=== PATIENT | female | born 1930 | race Caucasian/White ===

== ENCOUNTER 2016-09-29 15:19 | Emergency (ER) | payer MEDICARE, BC ==
--- NOTE | 2016-09-29 15:33 | Emergency Department Record ---
History of Present Illness - General Chief Complaint: Animal Bite Stated Complaint: CAT BITE ON HAND Time Seen by Provider: 09/29/16 15:32 Source: Patient Mode of Arrival: Ambulatory Limitations: No limitations - History of Present Illness Initial Comments: The patient sustained a scratch to the back of the L hand 6 hours ago by her cat. She is not sure of the cat's Rabies status. Her TD was just updated by Dr. Connelly. Now she is here for possible suturing or steri-stripping. Complaint: Animal-related injury Onset/Timin -: Hour(s) Animal: Cat Description: Household pet Mechanism: Scratch Severity scale (1-10): 4 Context: Other Associated Symptoms: Bleeding, Erythema - Related Data Home Medications Medication Instructions Recorded Confirmed Last Taken Hydrochlorothiazide [Hctz 25Mg] 25 mg PO DAILY 09/29/16 09/29/16 09/29/16 Levothyroxine Sodium [Synthroid] 100 mcg PO DAILY 09/29/16 09/29/16 09/29/16 Losartan Potassium [Cozaar] 100 mg PO DAILY 09/29/16 09/29/16 09/29/16 Simvastatin [Zocor] 40 mg PO DAILY 09/29/16 09/29/16 09/29/16 Previous Rx's Medication Instructions Recorded Amoxicillin/Potassium Clav 1 each PO BID #14 tablet 09/29/16 [Augmentin 875Mg/125Mg] Allergies Allergy/AdvReac Type Severity Reaction Status Date / Time No Known Drug Intolerances Allergy Unknown none Verified 09/29/16 15:32 Travel Screening - Travel/Exposure Within Last 30 Days Have you traveled within the last 30 days?: No - Travel/Exposure Within Last Year Have you traveled outside the [place] in the last year?: No - Additonal Travel Details Have you been exposed to anyone with a communicable illness?: No - Travel Symptoms Symptom Screening: None Review of Systems Constitutional: Denies: Chills, Fever Past Medical History - SOCIAL HISTORY Smoking Status: Never smoker Alcohol Use: None Drug Use: None - RESPIRATORY Hx Respiratory Disorders: No - CARDIOVASCULAR Hx Cardio Disorders: Yes Hx Hypertension: Yes Comment:: cholesterol - NEURO Hx Neuro Disorders: No - GI Hx GI Disorders: No - Hx Genitourinary Disorders: No - ENDOCRINE Hx Endocrine Disorders: Yes Hx Diabetes: No Hx Thyroid Disease: Yes - MUSCULOSKELETAL Hx Musculoskeletal Disorders: No - PSYCH Hx Psych Problems: No - HEMATOLOGY/ONCOLOGY Hx Hematology/Oncology Disorders: No Family Medical History Any Significant Family History?: No Physical Exam - General General Appearance: Alert, Oriented x3, Cooperative, No acute distress - Head Head exam: Atraumatic, Normocephalic, Normal inspection - Eye Eye exam: Normal appearance, PERRL - Extremities Extremities exam: Full ROM. negative: Normal inspection (There is a 5 cm superficial laceration to the dorsal L hand. The distal hand is NVI with normal pulses.) Course Vital Signs 09/29/16 15:23 Temperature 97.7 F Pulse Rate 59 L Respiratory 20 Rate Blood Pressure 191/74 Pulse Ox 96 - Reevaluation(s) Reevaluation #1: The L hand wound was cleansed with betadine and sterile saline. The wound was very clean after the cleansing. The laceration was very superficial and due to the nature of the wound and the fact it was over 6 hours from the initial injury it was loosely steri stripped. 09/29/16 15:46 Reevaluation #2: I did discuss the cat and rabies issue with the patient. She is to contact animal control to quarantine her cat to be sure she does not contract rabies. 09/29/16 16:34 Disposition Disposition: Discharge Clinical Impression: Open wound, hand Qualifiers: Encounter type: initial encounter Open wound type: laceration Foreign body presence: without foreign body Laterality: left Qualified Code(s): S61.412A - Laceration without foreign body of left hand, initial encounter Disposition: Home, Self-Care Condition: (1) Good Instructions: Animal Bite (ED) Additional Instructions: Please take the Augmentin as directed. Please keep the hand clean and dry and return to the ER in 2 days for a wound recheck. Take Tylenol for pain. Prescriptions: Amoxicillin/Potassium Clav [Augmentin 875Mg/125Mg] 1 each PO BID #14 tablet Forms: Patient Portal Access Time of Disposition: 15:50
[2016-09-29] MEDS ORDERED: AMOXICILLIN/POTASSIUM CLAV 875MG/125MG TABLET PO ONE (15:42)
== END 2016-09-29 16:31 | disposition home or self-care (01) ==
LOC: ER 15:19
DX: S61.412A Laceration without foreign body of left hand, initial encounter (principal); W55.01XA Bitten by cat, initial encounter; Y92.009 Unspecified place in unspecified non-institutional (private) residence as the place of occurrence of the external cause
CPT/HCPCS: 99283

== ENCOUNTER 2016-10-01 08:48 | Emergency (ER) | payer MEDICARE, BC ==
--- NOTE | 2016-10-01 09:07 | Emergency Department Record ---
History of Present Illness - General Chief Complaint: Wound, check Stated Complaint: RECHECK Time Seen by Provider: 10/01/16 08:58 Source: Patient Mode of arrival: Ambulatory Limitations: No limitations - History of Present Illness Initial Comments: pt here for recheck of cat scratch 2 days ago. pt states she is better. she is taking augmentin Complaint: Wound re-check Onset/Timin -: Days(s) Initial Visit For: Other Returns Today for: Wound recheck Symptoms Since Prior Visit: No new symptoms, Improved Associated Symptoms: None Treatments Prior to Arrival: Given antibiotics on initial visit - Related Data Home Medications Medication Instructions Recorded Confirmed Last Taken Hydrochlorothiazide [Hctz 25Mg] 25 mg PO DAILY 09/29/16 10/01/16 09/29/16 Levothyroxine Sodium [Synthroid] 100 mcg PO DAILY 09/29/16 10/01/16 09/29/16 Losartan Potassium [Cozaar] 100 mg PO DAILY 09/29/16 10/01/16 09/29/16 Simvastatin [Zocor] 40 mg PO DAILY 09/29/16 10/01/16 09/29/16 Previous Rx's Medication Instructions Recorded Amoxicillin/Potassium Clav 1 each PO BID #14 tablet 09/29/16 [Augmentin 875Mg/125Mg] Allergies Allergy/AdvReac Type Severity Reaction Status Date / Time No Known Drug Intolerances Allergy Unknown none Verified 09/29/16 15:32 Travel Screening - Travel/Exposure Within Last 30 Days Have you traveled within the last 30 days?: No Review of Systems Reviewed: No additional complaints except as noted below Constitutional: Reports: As per HPI. Denies: Chills, Fever, Malaise, Night sweats, Weakness, Weight change Eyes: Reports: As per HPI. Denies: Eye discharge, Eye pain, Photophobia, Vision change ENT: Reports: As per HPI. Denies: Congestion, Dental pain, Ear pain, Epistaxis , Hearing loss, Throat pain Respiratory: Reports: As per HPI. Denies: Cough, Dyspnea, Hemoptysis, Stridor, Wheezes Cardiovascular: Reports: As per HPI. Denies: Arrhythmia, Chest pain, Dyspnea on exertion, Edema, Murmurs, Orthopnea, Palpitations, Paroxysmal nocturnal dyspnea, Rheumatic Fever, Syncope Endocrine: Reports: As per HPI. Denies: Fatigue, Heat or cold intolerance, Polydipsia, Polyuria Gastrointestinal: Reports: As per HPI. Denies: Abdominal pain, Constipation, Diarrhea, Hematemesis, Hematochezia, Melena, Nausea, Vomiting Genitourinary: Reports: As per HPI. Denies: Abnormal menses, Discharge, Dyspareunia, Dysuria, Frequency, Hematuria, Incontinence, Retention, Urgency Musculoskeletal: Reports: As per HPI. Denies: Arthralgia, Back pain, Gout, Joint swelling, Myalgia, Neck pain Skin: Reports: As per HPI. Denies: Bruising, Change in color, Change in hair/ nails, Lesions, Pruritus, Rash Neurological: Reports: As per HPI. Denies: Abnormal gait, Confusion, Headache, Numbness, Paresthesias, Seizure, Tingling, Tremors, Vertigo, Weakness Psychiatric: Reports: As per HPI. Denies: Anxiety, Auditory hallucinations, Depression, Homicidal thoughts, Suicidal thoughts, Visual hallucinations Hematological/Lymphatic: Reports: As per HPI. Denies: Anemia, Blood Clots, Easy bleeding, Easy bruising, Swollen glands Past Medical History - SOCIAL HISTORY Smoking Status: Never smoker - RESPIRATORY Hx Respiratory Disorders: No - CARDIOVASCULAR Hx Cardio Disorders: Yes Hx Hypertension: Yes Comment:: cholesterol - NEURO Hx Neuro Disorders: No - GI Hx GI Disorders: No - Hx Genitourinary Disorders: No - ENDOCRINE Hx Endocrine Disorders: Yes Hx Diabetes: No Hx Thyroid Disease: Yes - MUSCULOSKELETAL Hx Musculoskeletal Disorders: No - PSYCH Hx Psych Problems: No - HEMATOLOGY/ONCOLOGY Hx Hematology/Oncology Disorders: No Family Medical History Any Significant Family History?: No Physical Exam - General General Appearance: Alert, Oriented x3, Cooperative, Mild distress - Head Head exam: Normal inspection - Eye Eye exam: Normal appearance, PERRL, EOMI Pupils: Normal accommodation - ENT ENT exam: Normal exam, Mucous membranes moist, Normal external ear exam, Normal orophraynx Ear exam: Normal external inspection. negative: External canal tenderness Nasal Exam: Normal inspection. negative: Discharge, Sinus tenderness Mouth exam: Normal external inspection, Tongue normal Teeth exam: Normal inspection. negative: Dental caries Throat exam: Normal inspection. negative: Tonsillar erythema, Tonsillar exudate - Neck Neck exam: Normal inspection, Full ROM. negative: Tenderness - Respiratory Respiratory exam: Normal lung sounds bilaterally. negative: Respiratory distress - Cardiovascular Cardiovascular Exam: Regular rate, Normal rhythm, Normal heart sounds - GI/Abdominal GI/Abdominal exam: Soft, Normal bowel sounds. negative: Tenderness - Rectal Rectal exam: Deferred - exam: Deferred - Extremities Extremities exam: Normal inspection, Full ROM, Normal capillary refill, Tenderness Image of Hand: 1 - tender, decreasing erythema - Back Back exam: Reports: Normal inspection, Full ROM. Denies: Muscle spasm, Rash noted, Tenderness - Neurological Neurological exam: Alert, CN II-XII intact, Normal gait, Oriented X3 - Psychiatric Psychiatric exam: Normal affect, Normal mood - Skin Skin exam: Dry, Intact, Normal color, Warm Course Vital Signs 10/01/16 08:51 Temperature 97.8 F Pulse Rate 59 L Respiratory 18 Rate Blood Pressure 168/75 Pulse Ox 97 Disposition Disposition: Discharge Clinical Impression: Encounter for Wound Re-Check Disposition: Home, Self-Care Condition: (1) Good Instructions: Wound Infection (ED), Wound Healing and Your Diet (ED) Additional Instructions: follow up with family doctor. return sooner if worse. continues antibiotics Forms: Patient Portal Access
== END 2016-10-01 09:45 | disposition home or self-care (01) ==
LOC: ER 08:48
DX: S61.412A Laceration without foreign body of left hand, initial encounter (principal); W55.01XA Bitten by cat, initial encounter; Y92.009 Unspecified place in unspecified non-institutional (private) residence as the place of occurrence of the external cause
CPT/HCPCS: 99282

== ENCOUNTER 2017-02-02 11:31 | Day surgery (SDC) | payer MEDICARE, BC ==
[2017-02-02] MEDS ORDERED: FENTANYL PF 100MCG/2ML VIAL IV ONE (14:00)
[2017-02-02] MEDS ORDERED: LIDOCAINE 2% MDV (20MG/ML) 20ML VIAL IV ONE (14:00)
[2017-02-02] MEDS ORDERED: PROPOFOL 10 MG/ML VIAL IV ONE (14:00)
--- NOTE | 2017-02-06 10:00 | Operative Note ---
DATE OF SURGERY: 02/02/2017 OPERATION: ESOPHAGOGASTRODUODENOSCOPY with biopsy. PREOPERATIVE DIAGNOSIS: Chronic cough and dysphagia. POSTOPERATIVE DIAGNOSES: 1. Esophageal nodule at 33 cm of unclear significance. 2. Martino's esophagus. 3. Hiatal hernia. PROCEDURE: After informed consent was obtained from the patient, she was placed in the left lateral decubitus position in the endoscopy suite, sedated and monitored by the department of anesthesia. A well-lubricated [id number] gastroscope was placed in the posterior oropharynx and under direct visualization passed to the proximal esophagus. The endoscope was advanced through the proximal, mid, and distal esophagus. At approximately 31 cm, there appeared to be the onset of Martino's esophagus. This appeared to extend for approximately 6-7 cm but was difficult to tell, as there was a small hiatal hernia noted. There was also a Martino's segment in the nodule but no other abnormalities were noted in the esophagus. The gastric body, antrum, pylorus, duodenal bulb and sweep were unremarkable. J-turn views of the proximal stomach revealed a hiatal hernia. The endoscope was straightened. The nodule was biopsied. The Martino's segment was biopsied. The endoscope removed from the patient with no new findings noted. RECOMMENDATIONS: The patient should be on a [id number] proton pump inhibitor for at least 8 weeks and then can reduce to once per day thereafter. We will await the results of tissue histology. As always, thank you for allowing me to participate in the healthcare of your patients. CC: JENNIFER KIRBY MD, FACP [facility]
== END 2017-02-02 13:35 | disposition home or self-care (01) ==
LOC: HOP 11:31
PROVIDERS: ATTEND Internal Medicine Gastroenterology
DX: K22.70 Barrett's esophagus without dysplasia (principal); K44.9 Diaphragmatic hernia without obstruction or gangrene; I10 Essential (primary) hypertension; E78.00 Pure hypercholesterolemia, unspecified
CPT/HCPCS: 88305; 43239; 00740; J3010

== ENCOUNTER 2017-03-23 11:20 | Day surgery (SDC) | payer MEDICARE, BC ==
[2017-03-23] MEDS ORDERED: PROPOFOL 10 MG/ML VIAL IV ONE (16:14)
[2017-03-23] MEDS ORDERED: FENTANYL PF 100MCG/2ML VIAL IV ONE (16:14)
[2017-03-23] MEDS ORDERED: LIDOCAINE 2% MDV (20MG/ML) 20ML VIAL IV ONE (16:14)
--- NOTE | 2017-04-14 12:31 | Operative Note ---
DATE OF SURGERY: 03/23/2017 REFERRING PROVIDER: Jennifer Connelly MD, FACP PREOPERATIVE DIAGNOSIS: GERD. POSTOPERATIVE DIAGNOSIS: Long-segment Martino's esophagus. OPERATION: ESOPHAGOGASTRODUODENOSCOPY. PROCEDURE: After informed consent was obtained, the patient was placed in the left lateral decubitus position in the endoscopy suite, sedated and monitored by the Department of Anesthesia. Once sedated, a well-lubricated MPQ730 gastroscope was placed in the posterior oropharynx and under direct visualization passed to the proximal esophagus. The endoscope was advanced to the proximal, mid and distal esophagus. In the distal esophagus, there was noted to be changes consistent with long-segment Martino's. No nodularity or ulcers were seen. There was a small to moderate-size hiatal hernia. The subdiaphragmatic stomach, as well as the duodenal bulb and sweep, were unremarkable. J-turn views of the proximal stomach revealed a hiatal hernia. The endoscope was straightened. Biopsies were not take at this time, however the endoscope was then retracted through the course of the esophagus with no new findings or abnormalities noted. RECOMMENDATIONS: I would suggest the patient undergo repeat exam in 1 year. She should continue her PPI. As always, thank you for allowing me to participate in the health care of your patients. CC: JENNIFER CONNELLY MD, FACP [facility]PITALMonalisa
== END 2017-03-23 12:29 | disposition home or self-care (01) ==
LOC: HOP 11:20
PROVIDERS: ATTEND Internal Medicine Gastroenterology
DX: K21.9 Gastro-esophageal reflux disease without esophagitis (principal); K22.70 Barrett's esophagus without dysplasia; K44.9 Diaphragmatic hernia without obstruction or gangrene; I10 Essential (primary) hypertension; E78.00 Pure hypercholesterolemia, unspecified; E03.9 Hypothyroidism, unspecified
CPT/HCPCS: 43235; 00740; J3010

== ENCOUNTER 2018-02-14 21:56 | Observation (INO) | payer MEDICARE, BC ==
[2018-02-14 23:17] LABS: BASO % 0.1 % (0-6); EOS % 1.2 % (0-6); GRAN % 71.9 % (47-80); HEMATOCRIT 36.8 % (35.0-47.0); HEMOGLOBIN 12.6 gm/dl (11.6-16.0); LYMPH % 21.7 % (16-45); MEAN CELL VOLUME 88.2 fl (81-97); MEAN CORPUSCULAR HEMOGLOBIN 30.2 pg (27-33); MEAN CORPUSCULAR HGB CONC 34.2 g/dl (32-36); MEAN PLATELET VOLUME 9.9 fl (7.4-10.4); MONO % 5.1 % (0-9); PLATELET COUNT 294 K/uL (130-400); RED BLOOD COUNT 4.17 M/uL (3.80-5.40); RED CELL DISTRIBUTION WIDTH 13.4 % (11.5-14.5); WHITE BLOOD COUNT W/O DIFF 10.4 K/uL (4.2-12.2)
--- NOTE | 2018-02-14 23:21 | Emergency Department Record ---
History of Present Illness - General Chief Complaint: Dizziness Stated Complaint: DIZZY,NAUSEA,SWEATING Time Seen by Provider: 02/14/18 22:52 Source: Patient Mode of Arrival: Wheelchair Limitations: No limitations - History of Present Illness Initial Comments: pt has been having dizzy spells all day intermittently . she becomes diaphorectic and has nausea with it. Complaint: Dizziness Onset/Timin -: Month(s) Timing: Gradual onset Description: Nausea Associated Symptoms: Diaphoresis - Tiffanie Coma Scale Eye Response: (4) Open spontaneously Motor Response: (6) Obeys commands Verbal Response: (5) Oriented Tiffanie Total: 15 - Symptoms of Stroke Symptoms of stroke: Dizziness - Related Data Home Medications Medication Instructions Recorded Confirmed Last Taken Metoprolol Succinate [Toprol Xl] 100 mg PO BID 02/14/18 02/14/18 Unknown Allergies Allergy/AdvReac Type Severity Reaction Status Date / Time No Known Drug Intolerances Allergy Unknown none Verified 02/14/18 22:43 Travel Screening - Travel/Exposure Within Last 30 Days Have you traveled within the last 30 days?: No - Travel Symptoms Symptom Screening: None Review of Systems Reviewed: No additional complaints except as noted below Constitutional: Reports: As per HPI. Denies: Chills, Fever, Malaise, Night sweats, Weakness, Weight change Eyes: Reports: As per HPI. Denies: Eye discharge, Eye pain, Photophobia, Vision change ENT: Reports: As per HPI. Denies: Congestion, Dental pain, Ear pain, Epistaxis , Hearing loss, Throat pain Respiratory: Reports: As per HPI. Denies: Cough, Dyspnea, Hemoptysis, Stridor, Wheezes Cardiovascular: Reports: As per HPI. Denies: Arrhythmia, Chest pain, Dyspnea on exertion, Edema, Murmurs, Orthopnea, Palpitations, Paroxysmal nocturnal dyspnea, Rheumatic Fever, Syncope Endocrine: Reports: As per HPI. Denies: Fatigue, Heat or cold intolerance, Polydipsia, Polyuria Gastrointestinal: Reports: As per HPI. Denies: Abdominal pain, Constipation, Diarrhea, Hematemesis, Hematochezia, Melena, Nausea, Vomiting Genitourinary: Reports: As per HPI. Denies: Abnormal menses, Discharge, Dyspareunia, Dysuria, Frequency, Hematuria, Incontinence, Retention, Urgency Musculoskeletal: Reports: As per HPI. Denies: Arthralgia, Back pain, Gout, Joint swelling, Myalgia, Neck pain Skin: Reports: As per HPI. Denies: Bruising, Change in color, Change in hair/ nails, Lesions, Pruritus, Rash Neurological: Reports: As per HPI. Denies: Abnormal gait, Confusion, Headache, Numbness, Paresthesias, Seizure, Tingling, Tremors, Vertigo, Weakness Psychiatric: Reports: As per HPI. Denies: Anxiety, Auditory hallucinations, Depression, Homicidal thoughts, Suicidal thoughts, Visual hallucinations Hematological/Lymphatic: Reports: As per HPI. Denies: Anemia, Blood Clots, Easy bleeding, Easy bruising, Swollen glands Past Medical History - SOCIAL HISTORY Smoking Status: Never smoker - RESPIRATORY Hx Respiratory Disorders: Yes Hx Sleep Apnea: Yes Hx of CPAP: No - CARDIOVASCULAR Hx Cardio Disorders: Yes Hx Hypertension: Yes Comment:: high cholesterol - NEURO Hx Neuro Disorders: No - GI Hx GI Disorders: No - Hx Genitourinary Disorders: No - ENDOCRINE Hx Endocrine Disorders: Yes Hx Diabetes: No Hx Thyroid Disease: Yes - MUSCULOSKELETAL Hx Musculoskeletal Disorders: Yes Hx Arthritis: Yes (KNEES) - PSYCH Hx Psych Problems: No - HEMATOLOGY/ONCOLOGY Hx Hematology/Oncology Disorders: No Family Medical History Any Significant Family History?: Yes Family Hx Comment (NOT TO BE USED IN PLACE OF ITEMS BELOW): Mom w/ Polio Hx Cancer: Brother/Sister Physical Exam - General General Appearance: Alert, Oriented x3, Cooperative, Mild distress - Head Head exam: Normal inspection - Eye Eye exam: Normal appearance, PERRL, EOMI Pupils: Normal accommodation - ENT ENT exam: Normal exam, Mucous membranes moist, Normal external ear exam, Normal orophraynx Ear exam: Normal external inspection. negative: External canal tenderness Nasal Exam: Normal inspection. negative: Discharge, Sinus tenderness Mouth exam: Normal external inspection, Tongue normal Teeth exam: Normal inspection. negative: Dental caries Throat exam: Normal inspection. negative: Tonsillar erythema, Tonsillar exudate - Neck Neck exam: Normal inspection, Full ROM. negative: Tenderness - Respiratory Respiratory exam: Normal lung sounds bilaterally. negative: Respiratory distress - Cardiovascular Cardiovascular Exam: Regular rate, Normal rhythm, Normal heart sounds - GI/Abdominal GI/Abdominal exam: Soft, Normal bowel sounds. negative: Tenderness - Rectal Rectal exam: Deferred - exam: Deferred - Extremities Extremities exam: Normal inspection, Full ROM, Normal capillary refill. negative: Tenderness - Back Back exam: Reports: Normal inspection, Full ROM. Denies: Muscle spasm, Rash noted, Tenderness - Neurological Neurological exam: Alert, CN II-XII intact, Normal gait, Oriented X3 - Psychiatric Psychiatric exam: Normal affect, Normal mood - Skin Skin exam: Dry, Intact, Normal color, Warm Course Vital Signs 02/14/18 02/14/18 02/14/18 22:30 22:59 23:01 Temperature 97.9 F Pulse Rate [ 56 L Web Content Editor ] Pulse Rate [ 62 Pulse Ox Probe] Respiratory 20 16 Rate Blood Pressure 177/75 [Left Arm] Blood Pressure 132/63 [Right Arm] Pulse Ox 98 92 L 87 L 02/14/18 23:02 Temperature Pulse Rate [ 50 L Web Content Editor ] Pulse Rate [ Pulse Ox Probe] Respiratory 16 Rate Blood Pressure [Left Arm] Blood Pressure 167/74 [Right Arm] Pulse Ox 99 - Reevaluation(s) Reevaluation #1: 02/15/18 00:07 pt had a witnessed spell by nurse. she became pale, diaphoretic and was nauseated. there was no arrythmia, her bp was 132/63 hr 56 during spell. it lasted 10 minutes. Medical Decision Making - Lab Data Result diagrams: 02/14/18 22:55 02/14/18 22:55 Disposition Disposition: Admit Clinical Impression: Dizziness, Diaphoresis Disposition: Still a Patient at [facility] Decision to Admit: Admit from ER Decision to Admit Date: 02/15/18 Decision to Admit Time: 00:10 Forms: Patient Portal Access Quality - Quality Measures Quality Measures: N/A - Blood Pressure Screening Does Patient Have Any of the Following: Active Dx of HTN Blood Pressure Classification: Hypertensive Reading Systolic Measurement: 167 Diastolic Measurement: 74 Screening for High Blood Pressure: Patient Exclusion, Hx of HTN [[id number]]
[2018-02-14 23:29] LABS: BLOOD UREA NITROGEN 16 mg/dL (8-23); CREATININE 0.7 mg/dL (0.5-0.9); EST GLOMERULAR FILTRATION RATE > 60 mL/min
[2018-02-14 23:30] LABS: TOTAL PROTEIN 6.9 g/dL (6.6-8.7)
[2018-02-14 23:32] LABS: GLUCOSE,RANDOM 108 mg/dL (74-109)
[2018-02-14 23:34] LABS: ALB/GLOB RATIO 1.4 (1.1-1.8); ALKALINE PHOSPHATASE 73 U/L (35-104); ALT/SGPT 19 U/L (<33); AST/SGOT 29 U/L (10.0-35.0)
[2018-02-15] MEDS ORDERED: NITROGLYCERIN 0.4MG SL TABLET #25 BTL SL PRN (00:31)
[2018-02-15] MEDS ORDERED: TEMAZEPAM 15 MG CAPSULE PO PRN (00:31)
[2018-02-15] MEDS: ACETAMINOPHEN 500 MG TABLET PO PRN ×2 (01:48→07:51)
[2018-02-15] MEDS ORDERED: LEVOTHYROXINE SODIUM 100 MCG TABLET PO SCH (06:00)
[2018-02-15 07:23] LABS: CKMB 3.8 ng/mL (<3.77)
[2018-02-15] MEDS ORDERED: ASPIRIN 325 MG TAB ENTERIC-COATED PO SCH (10:00)
[2018-02-15] MEDS ORDERED: METOPROLOL SUCC 50 MG TABLET PO SCH (10:00)
[2018-02-15] MEDS ORDERED: HYDROCHLOROTHIAZIDE 25 MG TABLET PO SCH (10:00)
[2018-02-15] MEDS ORDERED: MECLIZINE 25 MG TABLET PO ONE (10:16)
[2018-02-15] MEDS ORDERED: MECLIZINE 25 MG TABLET PO PRN (10:17)
[2018-02-15] MEDS ORDERED: METOPROLOL SUCC 50 MG TABLET PO ONE (10:20)
--- NOTE | 2018-02-15 17:18 | Discharge Note ---
VTE H&P Assessment - Risk for VTE Risk for VTE: No Risk Level: Very Low Risk Assessment Date: 02/15/18 Risk Assessment Time: 13:00 VTE Orders Placed or Will Be Placed: No VTE Reason for No Prophylaxis: Not Indicated Discharge Medications - Discharge Medications Prescriptions: Meclizine HCl [Antivert] 12.5 mg PO Q8H PRN #30 tablet PRN Reason: Dizziness Metoprolol Succinate [Toprol Xl] 100 mg PO DAILY #30 tab.er.24h Home Medications: Ambulatory Orders Hydrochlorothiazide [Hctz] 25 mg PO DAILY 09/29/16 [Last Taken 09/29/16] Levothyroxine Sodium [Synthroid] 100 mcg PO DAILY 09/29/16 [Last Taken 09/29/16] Simvastatin [Zocor] 40 mg PO QHS 09/29/16 [Last Taken 09/29/16] Acetaminophen [Tylenol 500Mg Tab] 1,000 mg PO Q6H PRN tablet 02/15/18 [Last Taken Unknown] Meclizine HCl [Antivert] 12.5 mg PO Q8H PRN #30 tablet 02/15/18 [Last Taken Unknown] Metoprolol Succinate [Toprol Xl] 100 mg PO DAILY #30 tab.er.24h 02/15/18 [Last Taken Unknown] Discharge Note - Date Date of Discharge Note: 02/15/18 Disposition: Home, Self-Care Condition: (1) Good Additional Instructions: follow up with Dr. Connelly in 4 to 6 days decrease toprol xl 100 mg to once aday meclizine(antivert) 12.5 mg three times a day Forms: Patient Portal Access
[2018-02-15] MEDS ORDERED: SIMVASTATIN 20 MG TABLET PO SCH (22:00)
--- NOTE | 2018-02-16 10:10 | Discharge Summary ---
DATE: 02/15/2018 at 5 p.m. Observation patient. DISCHARGE DIAGNOSES: 1. Vertigo. 2. Dementia, early. 3. Hot flashes. 4. Hypertension. 5. Hypothyroidism. 6. Hypercholesterolemia. ATTENDING PHYSICIAN: Andre Vale DO REASON FOR HOSPITALIZATION: This 87-year-old female presented to the emergency department with dizzy spells intermittently, a little diaphoresis, and nausea with it. It seems to be exacerbated when she moves her head right or left. She was seen in the emergency department by Dr. Latham and admitted to the hospital for observation. SIGNIFICANT FINDINGS: CT scan of the head is negative for any acute abnormalities. EKG with no acute changes with a right bundle-branch block. Normal sinus rhythm. Cardiac enzymes negative x3 time points. The TSH was normal at 1.27. Hemoglobin is normal at 12.6, potassium 3.8, sodium is a little bit low at 131. THERAPY PROVIDED: Cardiac monitoring. Observation. Meclizine 12.5 mg given orally. It seemed to stop the episodes during the day. Explained to the family this still could happen on and off and that she needs to take the meclizine 3 times a day for a short while and follow up with Dr. Connelly in 4-6 days. CONDITION ON DISCHARGE: Stable and improved. DISCHARGE INSTRUCTIONS: Follow up with Dr. Connelly in 4-6 days. Antivert 12.5 mg t.i.d. p.r.n. Decrease the Toprol-XL to 100 mg once a day instead of twice a day. Continue her home medications. Simvastatin 40 mg q.h.s., levothyroxine 100 mcg daily, hydrochlorothiazide 25 daily, Tylenol p.r.n. If the sodium drops, she needs to have the hydrochlorothiazide stopped. Discharge blood pressure 143/75, pulse 84. MTDD
--- NOTE | 2018-02-16 10:10 | History and Physical Report ---
CHIEF COMPLAINT: Dizziness. HISTORY OF PRESENT ILLNESS: This 87-year-old female had episodes of dizziness through the day. She seemed to tell me that when she moved her head from side to side, it would cause the symptoms to happen again. She also was a little diaphoretic and nauseated with the episodes. She was seen in the emergency department by Dr. Latham and admitted to the hospital for observation. Cardiac monitoring showing only benign rhythms, no malignant arrhythmias seen. The patient was placed in for serial cardiac enzymes and cardiac monitoring and further evaluation. PAST MEDICAL HISTORY: Hypercholesterolemia, hypothyroidism, hypertension, early dementia. ALLERGIES: No known allergies. MEDICATIONS: 1. Simvastatin 40 mg at h.s. 2. Levothyroxine 100 mcg daily. 3. Hydrochlorothiazide 25 daily. 4. Toprol-XL 100 mg b.i.d. 5. Tylenol p.r.n. FAMILY/PSYCHOSOCIAL HISTORY: Unremarkable. Mother had polio. She never smoked. No alcohol or drug use. PAST SURGICAL HISTORY: Breast lumpectomy. REVIEW OF SYSTEMS: HEENT: No upper respiratory infection symptoms, cough, cold, or congestion. Cardiovascular: No chest pain, palpitations, or arrhythmia. Respiratory: No cough, cold, or congestion. Gastrointestinal: She had some nausea; see Chief Complaint. No vomiting, diarrhea, or constipation or abdominal pain. Genitourinary: No dysuria, hematuria, frequency, or burning on urination. Musculoskeletal: She does have some arthritis but she is moving all 4 extremities well. Neurological: No CVA, paralysis, or paresthesias. CONSTRUCTION ADMINISTRATIVE ASSISTANT: No vaginal bleeding or abnormal lumps in her breasts. Endocrine: No diabetes mellitus. She has hypothyroidism. Integument: No rash, ulcers, change in moles, or yellow skin. PHYSICAL EXAMINATION: VITALS: Height 5 feet 2 inches, weight 167 pounds. Temperature 99.1, pulse 92, blood pressure 155/98, respiratory rate 18, pulse ox 93% on room air. HEENT: Pupils are equal, round, and reactive to light and accommodation. Extraocular muscles are intact. Throat is clear. Nose is clear. Tympanic membranes are hernandez. NECK: Supple. No jugular venous distention. No hepatojugular reflux. No carotid bruits. Thyroid is smooth. CARDIOVASCULAR: Regular rate and rhythm without murmurs, clicks, rubs, or gallops. RESPIRATORY: Clear to auscultation and percussion. ABDOMEN: Soft, nontender. No hepatosplenomegaly, no masses, no tenderness. Bowel sounds are active. No bruits. EXTREMITIES: No pitting edema. No cyanosis, no clubbing. Full range of motion. Peripheral pulses are good. BREASTS: Exam deferred. GYNECOLOGICAL: Exam deferred. RECTAL: Exam deferred. NEUROLOGIC: Cranial nerves II-XII intact. No gross defects. Sensation normal, strength normal. Deep tendon reflexes equal bilaterally with Babinski negative. MENTAL STATUS: Alert and oriented to person and place, not time. IMPRESSION: 1. Vertigo. 2. Early dementia. 3. Hypercholesterolemia. 4. Hypothyroidism. 5. Hypertension. 6. Hot flashes. PLAN: Serial cardiac enzymes and cardiac monitoring. Antivert to see if that will help her symptoms. Also, she will need to be set up for an outpatient carotid Doppler. SMITH
--- NOTE | 2018-02-17 23:05 | CT SCAN REPORT ---
EXAM: CT SCAN HEAD WO CONTRAST HISTORY: DIZZINESS FOR THE PAST MONTH, NAUSEA. TECHNIQUE: Axial CT scan of the head performed without IV contrast. Preliminary report provided by [facility]. COMPARISON: None. FINDINGS: No definite acute intracranial hemorrhage identified. No focal mass effect or midline shift evident. Mild generalized atrophy with chronic- appearing deep white matter changes, nonspecific but likely representing some chronic small vessel deep white matter ischemic disease. No definite acute infarct is seen. No depressed calvarial fracture evident. IMPRESSION: 1. MILD GENERALIZED ATROPHY WITH SOME CHRONIC-APPEARING DEEP WHITE MATTER CHANGES. 2. NO DEFINITE ACUTE INTRACRANIAL HEMORRHAGE OR FOCAL MASS EFFECT IDENTIFIED. JOB NUMBER: [id number] MTDD
== END 2018-02-15 18:05 | disposition home or self-care (01) ==
LOC: ER 21:56 → MEDSURG 02-15 00:30
PROVIDERS: ADMIT Emergency Medicine; ATTEND Emergency Medicine
DX: R42 Dizziness and giddiness (principal); R61 Generalized hyperhidrosis; R11.2 Nausea with vomiting, unspecified; I10 Essential (primary) hypertension; E78.00 Pure hypercholesterolemia, unspecified; E03.9 Hypothyroidism, unspecified; F03.90 Unspecified dementia, unspecified severity, without behavioral disturbance, psychotic disturbance, mood disturbance, and anxiety; G47.33 Obstructive sleep apnea (adult) (pediatric); M17.0 Bilateral primary osteoarthritis of knee
CPT/HCPCS: 85025; 82553; 80053; 84443; 84484 ×2; 70450; 93005 ×2; 93010 ×2; G0378; 99223; 99285

== ENCOUNTER 2018-03-11 22:06 | Emergency (ER) | payer MEDICARE, BC ==
--- NOTE | 2018-03-11 22:26 | Emergency Department Record ---
History of Present Illness - General Chief complaint: Rash Stated complaint: RASH STARTED ON FEET SPREAD UP BACK AND CHEST Time Seen by Provider: 03/11/18 22:19 Source: Patient Mode of Arrival: Ambulatory Limitations: No limitations - History of Present Illness Initial comments: 87 yo female presents in her baseline state of health. She noted some "red dots " on the feet and ankles three days ago. No pain, fever, itching, trauma, edema. She is asymptomatic. Today she noted some on her chest as well. No blood from the lips or gums, no hematuria, no blood in stools. No abnormal new bruising. She does not feel sick, ill, or different in any way. No new changes in medications. No anticoagulants. No cancers. No recent signs of concerns for infection. MD complaint: Rash -: Days(s) (3) Hx Tetanus Toxoid Vaccination: Yes Year of Tetanus Vaccination: 2016 Location: Chest, LLE, RLE, L foot, R foot Severity: Mild Quality: Other (No symptoms) Consistency: Constant Improves with: None Worsens with: None Context: None Associated symptoms: Other (No assocaited symptoms) Treatments Prior to Arrival: None - Related Data Previous Rx's Medication Instructions Recorded Meclizine HCl [Antivert] 12.5 mg PO Q8H PRN #30 tablet 02/15/18 Metoprolol Succinate [Toprol Xl] 100 mg PO DAILY #30 tab.er.24h 02/15/18 Allergies Allergy/AdvReac Type Severity Reaction Status Date / Time No Known Drug Intolerances Allergy Unknown none Verified 02/14/18 22:43 Review of Systems Constitutional: Denies: Chills, Fever, Malaise, Weakness Eyes: Denies: Eye discharge, Eye pain, Vision change ENT: Denies: Congestion, Throat pain Respiratory: Denies: Cough, Dyspnea Cardiovascular: Denies: Chest pain, Palpitations, Syncope Endocrine: Denies: Fatigue, Polydipsia, Polyuria Gastrointestinal: Denies: Abdominal pain, Diarrhea, Hematemesis, Hematochezia, Melena, Nausea, Vomiting Genitourinary: Denies: Dysuria, Hematuria Musculoskeletal: Denies: Arthralgia, Back pain, Joint swelling, Myalgia, Neck pain Skin: Reports: Rash. Denies: Bruising, Change in color, Change in hair/nails, Lesions Neurological: Denies: Headache, Numbness, Weakness Psychiatric: Denies: Anxiety Hematological/Lymphatic: Denies: Anemia, Blood Clots, Easy bleeding, Easy bruising Past Medical History - SOCIAL HISTORY Smoking Status: Never smoker Drug Use: None - RESPIRATORY Hx Respiratory Disorders: Yes Hx Sleep Apnea: Yes Hx of CPAP: No - CARDIOVASCULAR Hx Cardio Disorders: Yes Hx Hypertension: Yes Comment:: high cholesterol - NEURO Hx Neuro Disorders: No - GI Hx GI Disorders: No - Hx Genitourinary Disorders: No - ENDOCRINE Hx Endocrine Disorders: Yes Hx Diabetes: No Hx Thyroid Disease: Yes - MUSCULOSKELETAL Hx Musculoskeletal Disorders: Yes Hx Arthritis: Yes (KNEES) - PSYCH Hx Psych Problems: No - HEMATOLOGY/ONCOLOGY Hx Hematology/Oncology Disorders: No Family Medical History Family Hx Comment (NOT TO BE USED IN PLACE OF ITEMS BELOW): Mom w/ Polio Hx Cancer: Brother/Sister Physical Exam - General General Appearance: Alert, Oriented x3, Cooperative, No acute distress Limitations: No limitations - Head Head exam: Atraumatic, Normal inspection Head exam detail: Other (No rash) - Eye Eye exam: Normal appearance, PERRL, Conjunctival injection. negative: Periorbital swelling, Scleral icterus - ENT ENT exam: Normal exam, Mucous membranes moist, Normal orophraynx, TM's normal bilaterally, Other (No intraoral lesions). negative: Mucous membranes dry Ear exam: Normal external inspection Nasal Exam: Normal inspection. negative: Dried blood Mouth exam: Normal external inspection Teeth exam: Normal inspection Throat exam: Normal inspection. negative: Tonsillar erythema, Tonsillomegaly, R peritonsillar mass, L peritonsillar mass - Neck Neck exam: Normal inspection, Full ROM, Other (no rash). negative: Lymphadenopathy - Respiratory Respiratory exam: Normal lung sounds bilaterally. negative: Rhonchi, Stridor, Wheezes - Cardiovascular Cardiovascular Exam: Regular rate, Normal rhythm, Normal heart sounds. negative : Diastolic murmur, Systolic murmur Peripheral Pulses: 2+: Radial (R), Radial (L) - GI/Abdominal GI/Abdominal exam: Soft. negative: Tenderness - Rectal Rectal exam: Deferred - exam: Deferred - Extremities Extremities exam: Full ROM, Normal capillary refill. negative: Normal inspection, Calf tenderness, Joint swelling, Pedal edema, Tenderness Image of Full Body: 1 - widely spread, few, scattered 1 to max of 2mm erythematous papules. No bruises. Slightly palpable. - Back Back exam: Reports: Normal inspection (No rash) - Neurological Neurological exam: Alert, Normal gait, Oriented X3 - Psychiatric Psychiatric exam: Normal affect, Normal mood - Skin Description of rash: Erythematous, Macular, Petechial (few, scattered feet and ankles. None under nails, none on palms or soles. ), Size (1-2mm max). negative: Blisters, Bullous, Confluent, Crusting, Fluctuant, Indurated, Purpuic , Swelling, Tenderness, Vesicular Course - Reevaluation(s) Reevaluation #1: The labs were reviewed No acute changes She will be told to hold her aspirin for now, call her PCP first of the week She is to return if she has any additional symptoms or concerns She is asymptomatic at this time. 03/11/18 22:55 Medical Decision Making - Lab Data Result diagrams: 03/11/18 22:25 03/11/18 22:25 Disposition Disposition: Discharge Clinical Impression: Rash, Petechiae Disposition: Home, Self-Care Condition: (1) Good Instructions: Acute Rash (ED) Additional Instructions: Call your family doctor. Call to schedule the next available appointment for a recheck. Return to ED if your symptoms worsen or if you have any new concerns. Review the final Emergency Record and test results with your doctor on follow up Return if you have any symptoms including but not limited to fever, pain, swelling, short of breath, headache, vision changes, bruising. Do not take your aspirin until you see Dr Connelly in the office this week for a recheck Your blood pressure was elevated in the ER. Recheck first of the week Forms: Patient Portal Access Time of Disposition: 22:58 Quality - Quality Measures Quality Measures: N/A - Blood Pressure Screening Does Patient Have Any of the Following: Active Dx of HTN Blood Pressure Classification: Hypertensive Reading Systolic Measurement: 206 Diastolic Measurement: 95 Screening for High Blood Pressure: Patient Exclusion, Hx of HTN [G9744]
[2018-03-11 22:31] LABS: BASO % 0.4 % (0-6); EOS % 3.3 % (0-6); GRAN % 42.7 % (47-80); HEMATOCRIT 37.5 % (35.0-47.0); HEMOGLOBIN 12.6 gm/dl (11.6-16.0); LYMPH % 45.3 % (16-45); MEAN CELL VOLUME 89.1 fl (81-97); MEAN CORPUSCULAR HEMOGLOBIN 29.9 pg (27-33); MEAN CORPUSCULAR HGB CONC 33.6 g/dl (32-36); MEAN PLATELET VOLUME 9.3 fl (7.4-10.4); MONO % 8.3 % (0-9); PLATELET COUNT 299 K/uL (130-400); RED BLOOD COUNT 4.21 M/uL (3.80-5.40); RED CELL DISTRIBUTION WIDTH 13.4 % (11.5-14.5); WHITE BLOOD COUNT W/O DIFF 10.4 K/uL (4.2-12.2)
[2018-03-11 22:42] LABS: BLOOD UREA NITROGEN 20 mg/dL (8-23); CREATININE 0.8 mg/dL (0.5-0.9); EST GLOMERULAR FILTRATION RATE > 60 mL/min
[2018-03-11 22:45] LABS: GLUCOSE,RANDOM 103 mg/dL (74-109)
[2018-03-11 22:46] LABS: INR 1.1; PARTIAL THROMBOPLASTIN TIME 26.7 SECONDS (24.5-39.1); PROTHROMBIN TIME (PATIENT) 11.1 SECONDS (9.5-12.1)
== END 2018-03-11 23:10 | disposition home or self-care (01) ==
LOC: ER 22:06
DX: R23.3 Spontaneous ecchymoses (principal); I10 Essential (primary) hypertension
CPT/HCPCS: 80048; 85025; 85610; 85730; 99283

== ENCOUNTER 2018-03-25 17:30 | Emergency (ER) | payer MEDICARE, BC ==
--- NOTE | 2018-03-25 18:16 | Emergency Department Record ---
History of Present Illness - General Chief complaint: Extremity Problem Stated complaint: FALL LT SHOULDER PAIN Time Seen by Provider: 03/25/18 18:03 Source: Patient, Family Mode of Arrival: Wheelchair Limitations: No limitations - History of Present Illness Initial comments: The patient tripped and fell and injured her L shoulder about an hour ago. Now it is quite painful. She denies any head injury, neck pain, or L elbow pain. MD Complaint: Extremity pain Onset/Timin -: Hour(s) Location: Left, Arm, Shoulder History of Same: No Severity scale (1-10): 10 Quality: Sharp Consistency: Constant Improves with: Immobilization, Rest Worsens with: Exertion, Palpation - Related Data Previous Rx's Medication Instructions Recorded Meclizine HCl [Antivert] 12.5 mg PO Q8H PRN #30 tablet 02/15/18 Metoprolol Succinate [Toprol Xl] 100 mg PO DAILY #30 tab.er.24h 02/15/18 Acetaminop W/ Codeine 300/30Mg 1 tab PO Q6H #12 tab 03/25/18 [Tylenol #3] Allergies Allergy/AdvReac Type Severity Reaction Status Date / Time No Known Drug Intolerances Allergy Unknown none Verified 03/25/18 17:45 Travel Screening - Travel/Exposure Within Last 30 Days Have you traveled within the last 30 days?: No - Travel/Exposure Within Last Year Have you traveled outside the [place] in the last year?: No - Additonal Travel Details Have you been exposed to anyone with a communicable illness?: No - Travel Symptoms Symptom Screening: None Review of Systems Constitutional: Denies: Chills, Fever Eyes: Denies: Eye discharge ENT: Denies: Congestion Respiratory: Denies: Cough Past Medical History - SOCIAL HISTORY Smoking Status: Never smoker Alcohol Use: None Drug Use: None - RESPIRATORY Hx Respiratory Disorders: Yes Hx Sleep Apnea: Yes Hx of CPAP: No - CARDIOVASCULAR Hx Cardio Disorders: Yes Hx Hypertension: Yes Comment:: high cholesterol - NEURO Hx Neuro Disorders: No Hx Dizziness: Yes - GI Hx GI Disorders: No - Hx Genitourinary Disorders: No - ENDOCRINE Hx Endocrine Disorders: Yes Hx Diabetes: No Hx Thyroid Disease: Yes - MUSCULOSKELETAL Hx Musculoskeletal Disorders: Yes Hx Arthritis: Yes (KNEES) - PSYCH Hx Psych Problems: No - HEMATOLOGY/ONCOLOGY Hx Hematology/Oncology Disorders: No Family Medical History Any Significant Family History?: Yes Family Hx Comment (NOT TO BE USED IN PLACE OF ITEMS BELOW): Mom w/ Polio Hx Cancer: Brother/Sister Physical Exam - General General Appearance: Alert, Oriented x3, Cooperative, No acute distress - Head Head exam: Atraumatic, Normocephalic, Normal inspection - Eye Eye exam: Normal appearance, PERRL - Neck Neck exam: Normal inspection, Full ROM. negative: Tenderness - Respiratory Respiratory exam: Normal lung sounds bilaterally. negative: Respiratory distress - Cardiovascular Cardiovascular Exam: Regular rate, Normal rhythm, Normal heart sounds - Extremities Extremities exam: Normal capillary refill, Tenderness (There is significant L proximal humerus tenderness and AC joint tenderness.), Other (The L arm is NVI with normal pulses.). negative: Normal inspection, Full ROM, Joint swelling - Neurological Neurological exam: Alert. negative: Motor sensory deficit Course Vital Signs 03/25/18 17:50 Temperature 98.1 F Pulse Rate 58 L Respiratory 18 Rate Blood Pressure 156/75 Pulse Ox 97 - Reevaluation(s) Reevaluation #1: The patient is doing very well at this time. I did discuss the scapula fx with the patient and family. I also did discuss the case with Dr. Jean and she is to be seen in the [facility] on 03/25/18 19:54 Medical Decision Making - Data Complexity MDM Data: X-Ray Ordered and/or Reviewed - Radiology Data Radiology results: Report reviewed (L Shoulder: Min displaced L acromion fx. O/ W neg.) Disposition Disposition: Discharge Clinical Impression: Closed fracture of acromion Qualifiers: Encounter type: initial encounter Fracture alignment: nondisplaced Laterality: left Qualified Code(s): S42.125A - Nondisplaced fracture of acromial process, left shoulder, initial encounter for closed fracture Disposition: Home, Self-Care Condition: (2) Stable Instructions: Scapular Fracture (ED) Additional Instructions: Please wear the sling at all times and use ice to the L shoulder during the day. Please take the Tylenol # [address] for [address] Please see Dr. Jean in the [facility] on Mon. Return to the ER for any worsening symptoms. Prescriptions: Acetaminop W/ Codeine 300/30Mg [Tylenol #3] 1 tab PO Q6H #12 tab Referrals: [facility] [Provider Group] Forms: Patient Portal Access Time of Disposition: 19:53 Quality - Quality Measures Quality Measures: N/A - Blood Pressure Screening View Details: Yes Does Patient Have Any of the Following: No Blood Pressure Classification: Hypertensive Reading Systolic Measurement: 156 Diastolic Measurement: 75 Screening for High Blood Pressure: < First Hypertensive BP, F/U Documented > [ G8950] First Hypertensive Follow-up Interventions: Referral to alternative/primary care provider.
[2018-03-25] MEDS ORDERED: MORPHINE SULFATE 10 MG/ML VIAL IM ONE (18:23)
[2018-03-25] MEDS ORDERED: ONDANSETRON 4 MG ODT TABLET SL ONE (18:23)
[2018-03-25] MEDS ORDERED: ACETAMINOPHEN W/ CODEINE 300MG/30MG TABLET PO ONE (19:55)
== END 2018-03-25 20:04 | disposition home or self-care (01) ==
LOC: ER 17:30
DX: S42.125A Nondisplaced fracture of acromial process, left shoulder, initial encounter for closed fracture (principal); W01.0XXA Fall on same level from slipping, tripping and stumbling without subsequent striking against object, initial encounter; I10 Essential (primary) hypertension
CPT/HCPCS: 99283; 96372; 99284; 73030; J2270

== ENCOUNTER 2018-08-23 12:49 | Day surgery (SDC) | payer MEDICARE, BC ==
[2018-08-23] MEDS ORDERED: LIDOCAINE 2% MDV (20MG/ML) 20ML VIAL IV ONE (12:50)
[2018-08-23] MEDS ORDERED: PROPOFOL 10 MG/ML VIAL IV ONE (12:50)
--- NOTE | 2018-08-24 10:50 | Operative Note ---
DATE OF SURGERY: 08/23/2018 OPERATION: ESOPHAGOGASTRODUODENOSCOPY. PREOPERATIVE DIAGNOSIS: Dysphagia. POSTOPERATIVE DIAGNOSIS: Long-segment Martino's and hiatal hernia, otherwise normal exam. PROCEDURE: After informed consent was obtained from the patient, she was placed in the left lateral decubitus position in the endoscopy suite, sedated and monitored by the department of anesthesia. A well-lubricated [id number] gastroscope was placed in the posterior oropharynx under direct visualization and passed to the proximal esophagus. The endoscope was advanced through the proximal, mid, and distal esophagus. There was evidence of approximately 5-6 cm of Martino's, a 4 cm hiatal hernia as well. The subdiaphragmatic stomach demonstrated normal distensibility, normal rugal folds. The body, antrum, pylorus, duodenal bulb and sweep were unremarkable. J-turn views of the proximal stomach were unrevealing other than the aforementioned hiatal hernia. The endoscope was then straightened and retracted from the patient with no new findings or abnormalities noted. RECOMMENDATIONS: I would suggest the patient undergo an esophagram to further evaluate her dysphagia. As always, thank you for allowing me to participate in the healthcare of your patients. CC: JENNIFER KIRBY MD, FACP ESAD
== END 2018-08-23 14:25 | disposition home or self-care (01) ==
LOC: HOP 12:49
PROVIDERS: ATTEND Internal Medicine Gastroenterology
DX: R13.10 Dysphagia, unspecified (principal); K22.70 Barrett's esophagus without dysplasia; K44.9 Diaphragmatic hernia without obstruction or gangrene; I10 Essential (primary) hypertension; E78.00 Pure hypercholesterolemia, unspecified; E03.9 Hypothyroidism, unspecified